=== PATIENT | male | born 1945 | race Caucasian/White ===

== ENCOUNTER 2021-12-25 04:10 | Outpatient (CLI) | payer MEDICARE, BC, SELFPAY ==
[2021-12-25 12:55] LABS: Source Nasal/Nares
[2021-12-25 16:08] LABS: COVID-19 PCR Negative (Negative)
== END 2021-12-25 04:11 | disposition home or self-care (01) ==
PROVIDERS: Visit Provider Orthopaedic Surgery
DX: Z20.822 Contact with and (suspected) exposure to COVID-19 (principal); Z01.818 Encounter for other preprocedural examination
CPT/HCPCS: 87635; U0005